=== PATIENT | female | born 1950 | race American Indian/Alaskan Native ===

== ENCOUNTER 2022-04-25 16:06 | Outpatient (CLI) | payer MEDICARE ==
--- NOTE | 2022-04-25 18:36 | XRay Report ---
LEFT FINGER(S) 3 VIEW(S) INDICATION / CLINICAL INFORMATION: S60.012A CONTUSION, M79.645 PAIN IN LEFT THUMB COMPARISON: None available. FINDINGS: BONES / JOINT(S): No acute fracture or subluxation. 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 SOFT TISSUES: No significant abnormality. ADDITIONAL FINDINGS: None. IMPRESSION: 1. No acute findings. Signer Name: Darnell Diaz MD Signed: 04/25/2022 6:32 PM Workstation Name: [id number]
== END 2022-04-25 16:07 | disposition home or self-care (01) ==
LOC: XRAY 16:06
PROVIDERS: ATTEND Family Medicine
DX: M19.042 Primary osteoarthritis, left hand (principal)